=== PATIENT | male | born 1990 ===

== ENCOUNTER 2017-07-03 04:27 | Emergency (ER) | payer SELFPAY ==
[~2017-07-03] VITALS: Ht 172.7 cm; Wt 67.0 kg
[2017-07-03 04:37] VITALS: BP 124/80; PULSE 50; RESP 12; RESP 6; TEMP 97.9; O2SAT 99
[2017-07-03] MEDS ORDERED: SODIUM CHLOR 0.9% 1000 ML INJ 1,000 ML IV ONE ×2 (05:00→07:30)
[2017-07-03] MEDS ORDERED: ONDANSETRON HCL 4 MG/2 ML VIAL IV ONE (05:00)
--- NOTE | 2017-07-03 05:17 | PD ---
HPI Chief Complaint: Abdominal Pain Time Seen by Provider: 04:30 Travel History International Travel<30 days: No Contact w/Intl Traveler<30days: No Traveled to known affect area: No History of Present Illness HPI The patient is a 27 year old male who presents to the [facility] emergency department with a history of abdominal pain that began at 2:30 AM. The patient reports that it awoke him from sound sleep. He reports the pain is sharp in character associated with cramping. He reports the pain comes and goes. The patient reports that approximately 1 hour later he began to have loose stools. He reports that he has had 3 loose stools since the onset. He reports that his stool is green in color. He denies noticing any blood in his stool. He denies having any known sick contacts, recent antibiotic use, or unusual food intake. He reports having nausea without vomiting. He reports that he also noticed some discomfort with urinating just prior to arrival. He denies having any penile discharge, urinary frequency, or urinary urgency. He denies having any blood in his urine. He denies having any testicle pain or swelling. On review of systems otherwise, the patient denies having any known fevers, cough, congestion, neck pain, chest pain, shortness of breath, or neurologic symptoms. The patient reports that on one occasion he had similar symptoms previously and was diagnosed with an intestinal infection. [facility] Past Medical History Narrative Medical The patient's past medical history is significant for asthma. Asthma: Yes Respiratory: Yes (ASTHMA) Past Surgical History Narrative Surgical The patient's past surgical history is reportedly none. Social History Alcohol Use: Yes Tobacco Use: No Substance Use: No Allergies-Medications (Allergen,Severity, Reaction): Coded Allergies: No Known Allergies (Verified Allergy, Severe, 07/03/17) Sulfa (Sulfonamide Antibiotics) (Verified Allergy, Unknown, 07/03/17) Reported Meds & Prescriptions Reported Meds & Active Scripts Active Flagyl (Metronidazole) 500 Mg Tab 500 Mg PO TID Cipro (Ciprofloxacin HCl) 500 Mg Tab 500 Mg PO BID Review of Systems Except as stated in HPI: all other systems reviewed are Neg General / Constitutional: No: Fever Eyes: No: Visual changes HENT: No: Headaches Cardiovascular: No: Chest Pain or Discomfort Respiratory: No: Shortness of Breath Gastrointestinal: Positive: Nausea, Diarrhea, Changes in Bowel Habits, No: Vomiting, Abdominal Pain, Hematemesis, Hematochezia, Indigestion, Loss of Appetite Genitourinary: Positive: Dysuria, No: Urgency, Frequency Musculoskeletal: No: Pain Skin: No Rash Neurologic: No: Weakness, Focal Abnormalities, Change in Mentation, Slurred Speech, Sensory Disturbance Psychiatric: No: Depression Endocrine: No: Polydipsia Hematologic/Lymphatic: No: Easy Bruising Physical Exam Narrative General: The patient is a well-developed well-nourished male in no acute distress. Head and Neck exam: Head is normocephalic atraumatic. Eyes: EOMI, pupils are equal round and reactive to light. Nose: Midline septum with pink mucous membranes Mouth: Dentition unremarkable. Moist mucus membranes. Posterior oropharynx is not erythematous. No tonsillar hypertrophy. Uvula midline. Airway patent. Neck: No palpable lymphadenopathy. No nuchal rigidity. No thyromegaly. Cardiovascular: Sinus bradycardia with a rate in the upper 40s without murmurs, gallops, or rubs. Lungs: Clear to auscultation bilaterally. No wheezes, rhonchi, or rales. Abdomen: Soft, with tenderness on palpation of the suprapubic and left lower quadrant of the abdomen, no other tenderness on palpation of the other quadrants of the abdomen. No tenderness on palpation of McBurney's point. No guarding, rebound , or rigidity. Normal bowel sounds are audible. Negative Abarca's sign. Extremities: No clubbing, cyanosis, or edema. 2+ pulses in all 4 extremities. No calf tenderness on palpation. Back: No spinous process tenderness to palpation. Left-sided CVA discomfort is noted on palpation. Neurologic Exam: Grossly nonfocal. Skin Exam: No rash noted. Intact skin that is warm and dry. Data Data Last Documented VS Vital Signs Date Time Temp Pulse Resp B/P (MAP) Pulse Ox O2 Delivery O2 Flow Rate FiO2 07/03/17 04:37 97.9 50 12 124/80 (95) 99 Orders Orders Complete Blood Count With Diff (07/03/17 04:50) Comprehensive Metabolic Panel (07/03/17 04:50) C-Reactive Protein (Crp) (07/03/17 04:50) Lipase (07/03/17 04:50) Urinalysis - C+S If Indicated (07/03/17 04:50) Westergren Sedimentation Rate (07/03/17 04:50) Ct Abd/Pel W/O Iv Contrast (07/03/17 04:50) Iv Access Insert/Monitor (07/03/17 04:50) Ecg Monitoring (07/03/17 04:50) Oximetry (07/03/17 04:50) Sodium Chlor 0.9% 1000 Ml Inj (Ns 1000 M (07/03/17 05:00) Ondansetron Inj (Zofran Inj) (07/03/17 05:00) Ketorolac Inj (Toradol Inj) (07/03/17 06:45) Sodium Chlor 0.9% 1000 Ml Inj (Ns 1000 M (07/03/17 07:30) Ed Discharge Order (07/03/17 07:35) Labs Laboratory Tests Test 07/03/17 05:20 White Blood Count 9.3 TH/MM3 Red Blood Count 5.17 MIL/MM3 Hemoglobin 15.0 GM/DL Hematocrit 45.7 % Mean Corpuscular Volume 88.3 FL Mean Corpuscular Hemoglobin 29.1 PG Mean Corpuscular Hemoglobin Concent 32.9 % Red Cell Distribution Width 13.0 % Platelet Count 264 TH/MM3 Mean Platelet Volume 7.9 FL Neutrophils (%) (Auto) 64.4 % Lymphocytes (%) (Auto) 25.7 % Monocytes (%) (Auto) 7.0 % Eosinophils (%) (Auto) 2.4 % Basophils (%) (Auto) 0.5 % Neutrophils # (Auto) 6.0 TH/MM3 Lymphocytes # (Auto) 2.4 TH/MM3 Monocytes # (Auto) 0.6 TH/MM3 Eosinophils # (Auto) 0.2 TH/MM3 Basophils # (Auto) 0.0 TH/MM3 CBC Comment DIFF FINAL Differential Comment Erythrocyte Sedimentation Rate 1 mm/hr Blood Urea Nitrogen 21 MG/DL Creatinine 1.10 MG/DL Random Glucose 94 MG/DL Total Protein 7.3 GM/DL Albumin 3.9 GM/DL Calcium Level 8.9 MG/DL Alkaline Phosphatase 114 U/L Aspartate Amino Transf (AST/SGOT) 27 U/L Alanine Aminotransferase (ALT/SGPT) 29 U/L Total Bilirubin 0.5 MG/DL Sodium Level 139 MEQ/L Potassium Level 3.7 MEQ/L Chloride Level 103 MEQ/L Carbon Dioxide Level 27.4 MEQ/L Anion Gap 9 MEQ/L Estimat Glomerular Filtration Rate 82 ML/MIN C-Reactive Protein LESS THAN 0.29 MG/DL Lipase 184 U/L MDM Medical Decision Making Medical Screen Exam Complete: Yes Emergency Medical Condition: Yes Medical Record Reviewed: Yes Interpretation(s) Last Impressions Abdomen/Pelvis CT 07/03/17 0450 Signed Impressions: Service Date/Time: Monday, July 03, 2017 05:04 - CONCLUSION: 1. Suspected mild, uncomplicated left-sided colitis in the proper clinical setting. 2. No renal stone or evidence of obstructive uropathy. 3. Previous left adrenal hemorrhage. 4. Diffusely sclerotic bones; does this patient have sickle cell disease? Ramiro Qureshi MD Differential Diagnosis Colitis, versus diverticulitis, versus kidney stone, versus pyelonephritis, versus gastroenteritis Narrative Course During the course of the patients emergency department visit, the patients history, examination, and differential diagnosis were reviewed with the patient. The patient was placed on a ballroom dance instructor with oximetry and frequent blood pressure monitoring. The patient had IV access obtained and blood work sent for analysis. The patient was initially provided Toradol 15 mg IV, normal saline 1 L IV fluid bolus, Zofran 4 mg IV. A second liter of IV fluids was administered. The patient was reexamined and reportedly feeling improved. The patients laboratory studies were reviewed and remarkable for a CBC that is within normal limits, sedimentation rate is 1, decreased the likelihood of inflammatory bowel disease, CMP is remarkable for a BUN of 21, GFR of 82, lipase 184. Radiology studies were reviewed and remarkable for a CT scan of the abdomen and pelvis that showed a suspected mild uncomplicated left-sided colitis in the proper clinical setting which certainly the patient presents with. The patient had no renal stone or evidence of obstructive uropathy. Previous left adrenal hemorrhage, diffusely sclerotic bones. No other acute abnormality. The patient's results were discussed with him. The patient will be discharged home with a prescription for Cipro and Flagyl with follow up with a temporary administrative assistant if he has continued symptoms or recurrence of symptoms. The patient is resting comfortably and feels better, is alert and in no distress. The patients results and examination findings were discussed with the patient. The repeat examination is unremarkable and benign. The history, exam, diagnostic testing, and current condition do not suggest any significant pathology to warrant further testing, continued ED treatment, admission, or surgical evaluation at this point. The vital signs have been stable. The patient does not have uncontrollable pain, intractable vomiting, or other significant symptoms. The patient's condition is stable and appropriate for discharge. The patient will pursue further outpatient evaluation with a primary care physician or other designated or consulting physician as indicated in the discharge instructions. The patient expressed understanding and was agreeable with this plan. Diagnosis Primary Impression: Colitis Referrals: Alex Cruz MD 1 week Patient Instructions: Colitis (ED), General Instructions Med/Other Pt SpecificInfo: Prescription(s) given Scripts Metronidazole (Flagyl) 500 Mg Tab 500 MG PO TID for Infection, #21 TAB 0 Refills Prov: Brie Payton MD 07/03/17 Ciprofloxacin (Cipro) 500 Mg Tab 500 MG PO BID for Infection, #14 TAB 0 Refills Prov: Brie Payton MD 07/03/17 Disposition: 01 DISCHARGE HOME Condition: Stable Brie Payton MD Jul 03, 2017 05:17
[2017-07-03 05:30] LABS: BASOPHIL % 0.5 % (0.0-2.0); EOSINOPHIL # 0.2 TH/MM3 (0-0.4); EOSINOPHIL % 2.4 % (0.0-4.0); HEMATOCRIT 45.7 % (39.0-51.0); HEMO FLAGS DIFF FINAL; LYMPH % 25.7 % (9.0-44.0); LYMPHOCYTE # 2.4 TH/MM3 (1.0-4.8); MEAN CELL VOLUME 88.3 FL (80.0-100.0); MEAN CORPUSCULAR HEMOGLOBIN 29.1 PG (27.0-34.0); MEAN CORPUSCULAR HGB CONC 32.9 % (32.0-36.0); NEUT % 64.4 % (16.0-70.0); PLATELET COUNT 264 TH/MM3 (150-450); RED BLOOD COUNT 5.17 MIL/MM3 (4.50-5.90); WHITE BLOOD COUNT 9.3 TH/MM3 (4.0-11.0)
--- NOTE | 2017-07-03 05:34 | RADRPT ---
EXAM DATE/TIME: 07/03/2017 05:04 [facility] COMPARISON: No previous studies available for comparison. INDICATIONS : Left lower abdominal pain. ORAL CONTRAST: No oral contrast ingested. RADIATION DOSE: 4.47 CTDIvol (mGy) MEDICAL HISTORY : Asthma. SURGICAL HISTORY : None. ENCOUNTER: Initial ACUITY: 1 day PAIN SCALE: 7/10 LOCATION: Left lower quadrant TECHNIQUE: Volumetric scanning of the abdomen and pelvis was performed. Using automated exposure control and ad justment of the mA and/or kV according to patient size, radiation dose was kept as low as reasonably achievable to obtain optimal diagnostic quality images. DICOM format image data is available electro nically for review and comparison. FINDINGS: LOWER LUNGS: The visualized lower lungs are clear. LIVER: Homogeneous density without lesion. There is no dilation of the biliary tree. No calcified gallston es. SPLEEN: Normal size without lesion. PANCREAS: Within normal limits. KIDNEYS: Normal in size and shape. There is no mass, stone, or hydronephrosis. ADRENAL GLANDS: Chronic appearing calcification of the left adrenal gland typical of previous hemorrhage. The right a drenal gland is normal. VASCULAR: There is no aortic aneurysm. BOWEL/MESENTERY: Mild wall thickening seen of the descending and proximal portions of the sigmoid colon, most likely i nfectious or inflammatory. No diverticular disease demonstrated. No abscess, perforation or obstructi on. ABDOMINAL WALL: Within normal limits. RETROPERITONEUM: There is no lymphadenopathy. BLADDER: No wall thickening or mass. REPRODUCTIVE: Within normal limits. INGUINAL: There is no lymphadenopathy or hernia. MUSCULOSKELETAL: Osseous structures appear diffusely sclerotic. CONCLUSION: 1. Suspected mild, uncomplicated left-sided colitis in the proper clinical setting. 2. No renal stone or evidence of obstructive uropathy. 3. Previous left adrenal hemorrhage. 4. Diffusely sclerotic bones; does this patient have sickle cell disease? Ramiro Qureshi MD on July 03, 2017 at 5:29 Board Certified Radiologist. This report was verified electronically.
[2017-07-03 05:45] LABS: ALT (GPT) 29 U/L (12-78); ANION GAP 9 MEQ/L (5-15); AST (GOT) 27 U/L (15-37); BICARBONATE 27.4 MEQ/L (21.0-32.0); BLOOD UREA NITROGEN 21 MG/DL (7-18); CHLORIDE 103 MEQ/L (98-107); GLOMERULAR FILTRATION RATE 82 ML/MIN (>89); POTASSIUM 3.7 MEQ/L (3.5-5.1); SODIUM (NA) 139 MEQ/L (136-145)
[2017-07-03 05:47] LABS: ALKALINE PHOSPHATASE 114 U/L (45-117); TOTAL BILIRUBIN ADULT 0.5 MG/DL (0.2-1.0)
[2017-07-03] MEDS ORDERED: KETOROLAC TROMETHAMINE 30 MG/ML (IVP) VIAL IV PUSH ONE (06:45)
[2017-07-03] MEDS ORDERED: CIPR-9 PO (07:36)
[2017-07-03] MEDS ORDERED: METR-1 PO (07:36)
== END 2017-07-03 08:29 | disposition home or self-care (01) ==
LOC: NEPC 04:27
DX: K52.9 Noninfective gastroenteritis and colitis, unspecified (principal); R00.1 Bradycardia, unspecified; J45.909 Unspecified asthma, uncomplicated
CPT/HCPCS: 74176; 80053; 83690; 85025; 85652; 86140; 96374; 96375; 99285; J1885; J2405; J7030